=== PATIENT | male | born 1995 | race African-American/Black ===

== ENCOUNTER 2022-05-15 13:23 | Emergency (ER) | payer OTHER ==
[2022-05-15 14:06] VITALS: BP 114/81; PULSE 78; TEMP 98.6; BMI 21.8
[2022-05-15] MEDS ORDERED: IBUPROFEN 600 MG TABLET (FP) PO ONE ×2 (16:36→16:42)
== END 2022-05-15 17:29 | disposition home or self-care (01) ==
LOC: JER 13:23 → JERFT 13:23 → EDBD 13:23 → JERFT 17:29
DX: T23.171A Burn of first degree of right wrist, initial encounter (principal); T23.172A Burn of first degree of left wrist, initial encounter; X13.1XXA Other contact with steam and other hot vapors, initial encounter
CPT/HCPCS: 99283-25